=== PATIENT | male | born 1975 | race Caucasian/White ===

== ENCOUNTER 2017-05-30 12:05 | Emergency (ER) | payer OTHER, BC ==
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
== END 2017-05-30 13:10 | disposition home or self-care (01) ==
LOC: ERS 12:05
DX: S16.1XXA Strain of muscle, fascia and tendon at neck level, initial encounter (principal); S20.211A Contusion of right front wall of thorax, initial encounter; I10 Essential (primary) hypertension; V49.40XA Driver injured in collision with unspecified motor vehicles in traffic accident, initial encounter; W22.11XA Striking against or struck by driver side automobile airbag, initial encounter
CPT/HCPCS: 71045

== ENCOUNTER 2017-06-01 12:22 | Emergency (ER) | payer BC ==
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
== END 2017-06-01 14:12 | disposition home or self-care (01) ==
LOC: ERS 12:22
DX: S06.0X9A Concussion with loss of consciousness of unspecified duration, initial encounter (principal); I10 Essential (primary) hypertension; Z79.899 Other long term (current) drug therapy; X58.XXXA Exposure to other specified factors, initial encounter
CPT/HCPCS: 70450

== ENCOUNTER 2019-10-18 05:55 | Emergency (ER) | payer BC | END 2019-10-18 06:20 | disposition home or self-care (01) | LOC: ERS 05:55 | DX: T63.2X1A Toxic effect of venom of scorpion, accidental (unintentional), initial encounter (principal); I10 Essential (primary) hypertension; Z79.899 Other long term (current) drug therapy | CPT/HCPCS: 99281 ==

== ENCOUNTER 2019-11-03 01:24 | Emergency (ER) | payer BC ==
[2019-11-03] MEDS ORDERED: Acetaminophen 500 MG TAB ONE (01:52)
== END 2019-11-03 02:53 | disposition home or self-care (01) ==
LOC: ERS 01:24
DX: R51 Headache (principal); H53.8 Other visual disturbances; I10 Essential (primary) hypertension; Z79.899 Other long term (current) drug therapy
CPT/HCPCS: 93005